=== PATIENT | male | born 1965 | race Caucasian/White ===

== ENCOUNTER 2016-07-12 23:42 | Emergency (ER) | payer MEDICARE, OTHER | END 2016-07-13 00:28 | disposition home or self-care (01) | LOC: D.ER 23:42 | DX: S30.810A Abrasion of lower back and pelvis, initial encounter (principal); V49.9XXA Car occupant (driver) (passenger) injured in unspecified traffic accident, initial encounter; Y93.89 Activity, other specified; Y92.410 Unspecified street and highway as the place of occurrence of the external cause; F17.200 Nicotine dependence, unspecified, uncomplicated ==